=== PATIENT | female | born 1990 | race Two or more races ===

== ENCOUNTER 2017-01-12 10:46 | Emergency (ER) | payer MEDICAID ==
[~2017-01-12] VITALS: Ht 154.9 cm; Wt 59.0 kg
[2017-01-12] MEDS ORDERED: SODIUM CHLORIDE 0.9% 1,000 ML IV ONE (12:55)
[2017-01-12] MEDS ORDERED: MORPHINE SULF INJ 2 MG/ML SYRINGE 1ML IV ONE (13:00)
[2017-01-12] MEDS ORDERED: ONDANSETRON HCL 4 MG/2 ML VIAL IV ONE (13:00)
[2017-01-12 13:31] LABS: Basophils # (auto) 0 uL; Basophils % (auto) 0.2 % (0.0-2.0); Eosinophils # (auto) 0 uL; Eosinophils % (auto) 0.2 % (0.0-7.0); Hematocrit 42.2 % (36.0-46.0); Hemoglobin 13.8 g/dL (12.2-16.2); Lymphocytes # (auto) 1.2 uL; Lymphocytes % (auto) 10.5 % (10.0-50.0); Mean Corpuscular Hemoglobin 28.5 pg (28.0-32.0); Mean Corpuscular Hgb Conc. 32.8 g/dL (32.0-36.0); Mean Platelet Volume 9.8 fL (7.4-10.4); Monocytes # (auto) 0.2 uL; Monocytes % (auto) 1.6 % (0.0-12.0); Neutrophils # (auto) 10.1 uL; Neutrophils % (auto) 87.5 % (37.0-80.0); Platelet Count (auto) 279 10^3/uL (140-450); Red Cell Distribution Width 14.7 % (11.6-16.0); SUSPECT VIEW TRANSMISSION; White Blood Cell 11.5 10^3/uL (4.4-10.8)
[2017-01-12 13:56] LABS: Albumin 4.1 g/dL (3.4-5.0); BUN/Creatinine Ratio 20.4; Bilirubin, Total 0.4 mg/dL (0.2-1.0); Calcium 8.9 mg/dL (8.5-10.1); Total Protein 7.8 g/dL (6.4-8.2)
[2017-01-12] MEDS ORDERED: cefTRIAXone 1GM/50ML D5W 50 ML IV ONE (15:30)
[2017-01-12 16:30] VITALS: BP 115/61
[2017-01-12 17:53] LABS: Urine Bilirubin Negative (Negative); Urine Blood Negative /uL (Negative); Urine Color Yellow (Yellow); Urine Glucose Normal (Normal); Urine Ketone Negative (Negative); Urine Nitrite Negative (Negative); Urine RBC <1 /hpf (0 - 4); Urine Squamous Epithelial Cell FEW /hpf (<5); Urine Urobilinogen Normal (Negative)
== END 2017-01-12 16:30 | disposition home or self-care (01) ==
LOC: ER 10:46
DX: K80.80 Other cholelithiasis without obstruction (principal); D72.829 Elevated white blood cell count, unspecified
CPT/HCPCS: 36415; 76705; 80053; 81001; 82150; 83690; 85025; 96361; 96365; 96375; 99285; J0696; J2270; J2405; J7030

== ENCOUNTER 2017-03-12 19:02 | Emergency (ER) | payer MEDICAID ==
[~2017-03-12] VITALS: Ht 154.9 cm; Wt 65.4 kg
[2017-03-12 20:59] LABS: Basophils # (auto) 0 uL; Basophils % (auto) 0.2 % (0.0-2.0); Eosinophils # (auto) 0 uL; Eosinophils % (auto) 0.4 % (0.0-7.0); Hemoglobin 14.6 g/dL (12.2-16.2); Lymphocytes % (auto) 8.8 % (10.0-50.0); Mean Corpuscular Hemoglobin 28.5 pg (28.0-32.0); Mean Corpuscular Hgb Conc. 32.5 g/dL (32.0-36.0); Mean Corpuscular Volume 87.4 fL (80.0-100.0); Mean Platelet Volume 9.4 fL (7.4-10.4); Monocytes # (auto) 0.3 uL; Neutrophils % (auto) 87.6 % (37.0-80.0); Platelet Count (auto) 294 10^3/uL (140-450); Red Cell Distribution Width 14.7 % (11.6-16.0); White Blood Cell 11.4 10^3/uL (4.4-10.8)
[2017-03-12] MEDS ORDERED: SODIUM CHLORIDE 0.9% 1,000 ML IVB ONE (21:01)
[2017-03-12] MEDS ORDERED: PANTOPRAZOLE SODIUM 40 MG/10 ML VIAL IV STA (21:01)
[2017-03-12] MEDS ORDERED: HYDROmorphone HCL 2 MG/ML VL IV ONE (21:15)
[2017-03-12] MEDS ORDERED: PROCHLORPERAZINE EDISYLATE 5 MG/ML 2ML VIAL IV ONE (21:15)
[2017-03-12 21:25] LABS: Albumin 4.1 g/dL (3.4-5.0); BUN/Creatinine Ratio 16.7; Calcium 8.5 mg/dL (8.5-10.1); Potassium 3.6 mmol/L (3.5-5.1)
[2017-03-12 21:28] LABS: Total Protein 7.7 g/dL (6.4-8.2)
[2017-03-12 22:34] VITALS: BP 110/61
== END 2017-03-13 00:28 | disposition left against medical advice (07) ==
LOC: ER 19:07
DX: K80.80 Other cholelithiasis without obstruction (principal); F17.210 Nicotine dependence, cigarettes, uncomplicated
CPT/HCPCS: 36415; 76705; 80053; 82150; 83690; 85025; 94761; 96361; 96374; 96375; 99285; C9113; J0780; J1170; J7030

== ENCOUNTER 2017-05-18 10:43 | Emergency (ER) | payer MEDICAID ==
[~2017-05-18] VITALS: Ht 154.9 cm; Wt 60.8 kg
[2017-05-18 11:09] LABS: Basophils # (auto) 0.1 uL; CONDITION Y; Eosinophils # (auto) 0 uL; Eosinophils % (auto) 0.3 % (0.0-7.0); Hemoglobin 13.6 g/dL (12.2-16.2); Lymphocytes % (auto) 25.4 % (10.0-50.0); Mean Corpuscular Hemoglobin 29.4 pg (28.0-32.0); Mean Corpuscular Hgb Conc. 33.9 g/dL (32.0-36.0); Mean Corpuscular Volume 86.7 fL (80.0-100.0); Mean Platelet Volume 9.1 fL (7.4-10.4); Monocytes # (auto) 0.4 uL; Monocytes % (auto) 4.9 % (0.0-12.0); Neutrophils # (auto) 5.5 uL; Neutrophils % (auto) 68.4 % (37.0-80.0); Platelet Count (auto) 266 10^3/uL (140-450); Red Cell Distribution Width 14.9 % (11.6-16.0); White Blood Cell 8.1 10^3/uL (4.4-10.8)
[2017-05-18 11:32] LABS: Albumin 3.9 g/dL (3.4-5.0); BUN/Creatinine Ratio 17.9; Bilirubin, Total 0.7 mg/dL (0.2-1.0); Calcium 8.9 mg/dL (8.5-10.1); Potassium 3.6 mmol/L (3.5-5.1); Total Protein 7.5 g/dL (6.4-8.2)
[2017-05-18] MEDS ORDERED: SODIUM CHLORIDE 0.9% 1,000 ML IVB ONE (13:02)
[2017-05-18] MEDS ORDERED: ONDANSETRON HCL 4 MG/2 ML VIAL IV ONE (13:15)
[2017-05-18 15:12] LABS: Magnesium 2.3 mg/dL (1.6-2.6)
[2017-05-18 17:09] LABS: Urine Bilirubin Negative (Negative); Urine Blood Negative /uL (Negative); Urine Color Yellow (Yellow); Urine Glucose Normal (Normal); Urine Mucus FEW (None Seen); Urine Nitrite Negative (Negative); Urine RBC 21 /hpf (0 - 4); Urine Squamous Epithelial Cell FEW /hpf (<5)
[2017-05-18 17:18] LABS: Urine Ketone 4+ (Negative)
[2017-05-18 17:50] VITALS: BP 104/49
== END 2017-05-18 19:43 | disposition home or self-care (01) ==
LOC: ER 10:43
DX: O21.0 Mild hyperemesis gravidarum (principal); O99.334 Smoking (tobacco) complicating childbirth; Z3A.00 Weeks of gestation of pregnancy not specified
CPT/HCPCS: 36415; 80053; 81001; 81025; 82150; 83690; 83735; 85025; 96361; 96374; 99284; J2405; J7030

== ENCOUNTER 2017-05-26 10:30 | Emergency (ER) | payer MEDICAID ==
[~2017-05-26] VITALS: Ht 154.9 cm; Wt 60.8 kg
[2017-05-26] MEDS ORDERED: SODIUM CHLORIDE 0.9% 1,000 ML IVB ONE (10:59)
[2017-05-26 11:00] VITALS: BP 113/69
[2017-05-26] MEDS ORDERED: PROMETHAZINE HCL 25 MG/ML 1ML IV ONE (11:00)
[2017-05-26 11:30] LABS: Basophils # (auto) 0 uL; Basophils % (auto) 0.4 % (0.0-2.0); CONDITION Y; Eosinophils # (auto) 0.1 uL; Eosinophils % (auto) 0.9 % (0.0-7.0); Hematocrit 38.5 % (36.0-46.0); Hemoglobin 13.1 g/dL (12.2-16.2); Lymphocytes # (auto) 2.2 uL; Lymphocytes % (auto) 27.6 % (10.0-50.0); Mean Corpuscular Hemoglobin 29.9 pg (28.0-32.0); Mean Corpuscular Volume 87.7 fL (80.0-100.0); Mean Platelet Volume 9.6 fL (7.4-10.4); Monocytes # (auto) 0.6 uL; Neutrophils # (auto) 5.2 uL; Neutrophils % (auto) 64.1 % (37.0-80.0); Platelet Count (auto) 284 10^3/uL (140-450); Red Cell Distribution Width 14.8 % (11.6-16.0); White Blood Cell 8.1 10^3/uL (4.4-10.8)
[2017-05-26 11:54] LABS: Albumin 3.8 g/dL (3.4-5.0); BUN/Creatinine Ratio 11.3; Bilirubin, Total 0.5 mg/dL (0.2-1.0); Potassium 3.8 mmol/L (3.5-5.1); Total Protein 7.7 g/dL (6.4-8.2)
[2017-05-26] MEDS ORDERED: cefTRIAXone 1GM/50ML D5W 50 ML IV ONE (12:00)
[2017-05-26] MEDS ORDERED: SODIUM CHLORIDE 0.9% 1,000 ML IV ONE ×2 (12:00)
== END 2017-05-26 12:56 | disposition home or self-care (01) ==
LOC: ER 10:33
DX: O23.41 Unspecified infection of urinary tract in pregnancy, first trimester (principal); O99.331 Smoking (tobacco) complicating pregnancy, first trimester; Z3A.08 8 weeks gestation of pregnancy
CPT/HCPCS: 36415; 76801; 80053; 84702; 85025; 96361; 96365; 96375; 99285; J0696; J2550

== ENCOUNTER 2019-01-09 11:45 | Emergency (ER) | payer MEDICAID ==
[~2019-01-09] VITALS: Ht 154.9 cm; Wt 65.3 kg
[2019-01-09] MEDS ORDERED: ONDANSETRON HCL 4 MG/2 ML VIAL IV ONE (12:30)
[2019-01-09] MEDS ORDERED: SODIUM CHLORIDE 0.9% 1,000 ML IV ONE (12:30)
[2019-01-09] MEDS ORDERED: MORPHINE SULFATE 4 MG/ML SYR/VIAL IV ONE ×2 (12:30→15:15)
[2019-01-09 13:01] VITALS: BP 109/76
[2019-01-09 13:24] LABS: Basophils # (auto) 0 uL; Basophils % (auto) 0.3 % (0.0-2.0); Eosinophils # (auto) 0 uL; Eosinophils % (auto) 0.3 % (0.0-7.0); Hematocrit 42.8 % (36.0-46.0); Hemoglobin 13.8 g/dL (12.2-16.2); Lymphocytes # (auto) 1.2 uL; Lymphocytes % (auto) 8.6 % (10.0-50.0); Mean Corpuscular Hemoglobin 28.6 pg (28.0-32.0); Mean Corpuscular Hgb Conc. 32.3 g/dL (32.0-36.0); Mean Corpuscular Volume 88.6 fL (80.0-100.0); Monocytes # (auto) 0.4 uL; Monocytes % (auto) 3.1 % (0.0-12.0); Neutrophils % (auto) 87.7 % (37.0-80.0); Platelet Count (auto) 280 10^3/uL (140-450); Red Blood Cells 4.83 10^6/uL (4.0-5.20); Red Cell Distribution Width 14.3 % (11.8-14.3); White Blood Cell 13.7 10^3/uL (4.4-10.8)
[2019-01-09 13:41] LABS: Potassium 3.4 mmol/L (3.5-5.1)
[2019-01-09 13:44] LABS: Albumin 4.3 g/dL (3.4-5.0); BUN/Creatinine Ratio 19.7; Calcium 8.6 mg/dL (8.5-10.1)
[2019-01-09 13:47] LABS: Bilirubin, Total 0.7 mg/dL (0.2-1.0); Total Protein 7.8 g/dL (6.4-8.2)
[2019-01-09 15:28] LABS: Alcohol, Urine < 3.0 mg/dL (0-5); Amphetamine Screen, Urine NEGATIVE (NEGATIVE); Barbiturate Scree,Urine NEGATIVE (NEGATIVE); Benzodiazephine Screen, Urine NEGATIVE (NEGATIVE); Cannabinoid Screen, Urine POSITIVE (NEGATIVE); Cocaine Screen, Urine NEGATIVE (NEGATIVE); Opiate Scree,Urine POSITIVE (NEGATIVE); Phencyclidine Screen, Urine NEGATIVE (NEGATIVE)
[2019-01-09 15:45] LABS: Urine Amorphous Crystal FEW /hpf (None Seen); Urine Bacteria NONE SEEN /hpf (None Seen); Urine Blood Negative /uL (Negative); Urine Mucus FEW (None Seen); Urine Specific Gravity 1.029 (1.001-1.035); Urine WBC 2 /hpf (0 - 5)
[2019-01-09] MEDS ORDERED: LACTULOSE 20Gm/30ML SOLN PO ONE (16:30)
== END 2019-01-09 17:16 | disposition home or self-care (01) ==
LOC: ER 11:45
DX: K59.00 Constipation, unspecified (principal); K29.00 Acute gastritis without bleeding; F12.188 Cannabis abuse with other cannabis-induced disorder; R11.10 Vomiting, unspecified; Z90.49 Acquired absence of other specified parts of digestive tract
CPT/HCPCS: 36415; 74176; 80053; 80307; 81001; 81025; 82150; 83690; 85025; 94761; 96374; 96375; 96376; 99284; J2270; J2405

== ENCOUNTER 2019-09-12 10:08 | Observation (INO) | payer MEDICAID ==
[~2019-09-12] VITALS: Ht 157.5 cm; Wt 72.1 kg
[2019-09-12] MEDS ORDERED: PRENCAP PO (10:48)
[2019-09-12 10:57] LABS: Urine Bacteria FEW /hpf (None Seen); Urine Blood Negative /uL (Negative); Urine Mucus FEW (None Seen); Urine Specific Gravity 1.026 (1.001-1.035); Urine WBC 129 /hpf (0 - 5)
[2019-09-12] MEDS ORDERED: ONDANSETRON HCL 4 MG/2 ML VIAL IV ONE (11:00)
[2019-09-12] MEDS ORDERED: LACTATED RINGER'S 1,000 ML IV ONE (11:00)
== END 2019-09-12 13:21 | disposition home or self-care (01) | DRG 566 ==
LOC: LDRP 10:08
PROVIDERS: ADMIT Obstetrics & Gynecology; ATTEND Obstetrics & Gynecology
DX: O21.2 Late vomiting of pregnancy (principal); O26.893 Other specified pregnancy related conditions, third trimester; O62.9 Abnormality of forces of labor, unspecified; R19.7 Diarrhea, unspecified; Z3A.32 32 weeks gestation of pregnancy
CPT/HCPCS: 81001; 96361; 96374; G0378; J2405

== ENCOUNTER 2019-10-23 08:20 | Observation (INO) | payer MEDICAID ==
[~2019-10-23] VITALS: Ht 30.5 cm; Wt 0.5 kg
[~2019-10-23 08:20] MED LIST: PRENCAP PO
[2019-10-23 09:12] LABS: Basophils # (auto) 0.1 uL; Basophils % (auto) 0.7 % (0.0-2.0); Eosinophils # (auto) 0.2 uL; Eosinophils % (auto) 2.1 % (0.0-7.0); Hematocrit 29.9 % (36.0-46.0); Hemoglobin 9.7 g/dL (12.2-16.2); Lymphocytes # (auto) 1.8 uL; Lymphocytes % (auto) 24.6 % (10.0-50.0); Mean Corpuscular Hemoglobin 25.4 pg (28.0-32.0); Mean Corpuscular Hgb Conc. 32.4 g/dL (32.0-36.0); Mean Corpuscular Volume 78.3 fL (80.0-100.0); Monocytes # (auto) 0.4 uL; Monocytes % (auto) 6.1 % (0.0-12.0); Neutrophils # (auto) 4.9 uL; Neutrophils % (auto) 66.5 % (37.0-80.0); Nucleated Red Blood Cells % 0.2 %; Platelet Count (auto) 198 10^3/uL (140-450); Red Blood Cells 3.82 10^6/uL (4.0-5.20); Red Cell Distribution Width 18.9 % (11.8-14.3); White Blood Cell 7.4 10^3/uL (4.4-10.8)
[2019-10-23 09:17] LABS: Urine Bacteria MOD /hpf (None Seen); Urine Blood Negative /uL (Negative); Urine Mucus FEW (None Seen); Urine Specific Gravity 1.015 (1.001-1.035); Urine WBC 10 /hpf (0 - 5)
[2019-10-23 09:27] LABS: INR 0.96 (0.9-1.15); Partial Thromboplastin Time 27.4 sec (23.64-32.05)
[2019-10-23 09:34] LABS: Albumin 2.6 g/dL (3.4-5.0); Calcium 8.1 mg/dL (8.5-10.1); Potassium 3.8 mmol/L (3.5-5.1)
[2019-10-23 09:37] LABS: BUN/Creatinine Ratio 14.6; Bilirubin, Total 0.4 mg/dL (0.2-1.0); Total Protein 6.7 g/dL (6.4-8.2)
[2019-10-23] MEDS ORDERED: TERBUTALINE SULFATE 1 MG/ML 1ML VIAL SC ONE ×2 (10:09→10:15)
[2019-10-23] MEDS ORDERED: NIFEdipine 10 MG CAP PO ONE (10:15)
[2019-10-24 04:05] LABS: RPR Non Reactive (Non Reactive)
== END 2019-10-23 10:40 | disposition home or self-care (01) | DRG 566 ==
LOC: LDRP 08:20
PROVIDERS: ADMIT Obstetrics & Gynecology; ATTEND Obstetrics & Gynecology
DX: O62.9 Abnormality of forces of labor, unspecified (principal); Z3A.38 38 weeks gestation of pregnancy
CPT/HCPCS: 36415; 59025; 80053; 81001; 81002; 84112; 85025; 85610; 85730; 86592; 86850; 86900; 86901; 96372; G0378; J3105

== ENCOUNTER 2019-10-24 04:40 | Inpatient (IN) | payer MEDICAID, OTHER ==
[2019-10-24] VITALS (12 sets, daily range): BP systolic 90–104; BP diastolic 43–69
[~2019-10-24] VITALS: Ht 154.9 cm; Wt 75.7 kg
[2019-10-24] MEDS ORDERED: LACTATED RINGER'S 1,000 ML IV SCH (06:20)
[2019-10-24 07:02] LABS: Urine Bacteria NONE SEEN /hpf (None Seen); Urine Blood 2+ /uL (Negative); Urine Mucus FEW (None Seen); Urine WBC 5 /hpf (0 - 5)
[2019-10-24 07:12] LABS: Alcohol, Urine < 3.0 mg/dL (0-5); Amphetamine Screen, Urine NEGATIVE (NEGATIVE); Barbiturate Scree,Urine NEGATIVE (NEGATIVE); Benzodiazephine Screen, Urine NEGATIVE (NEGATIVE); Cannabinoid Screen, Urine NEGATIVE (NEGATIVE); Cocaine Screen, Urine NEGATIVE (NEGATIVE); Opiate Scree,Urine NEGATIVE (NEGATIVE); Phencyclidine Screen, Urine NEGATIVE (NEGATIVE)
[2019-10-24 07:17] LABS: Basophils # (auto) 0 uL; Eosinophils # (auto) 0.1 uL; Lymphocytes # (auto) 1.8 uL; Mean Corpuscular Hemoglobin 25.6 pg (28.0-32.0); Monocytes # (auto) 0.5 uL; Neutrophils # (auto) 6.4 uL; Nucleated Red Blood Cells % 0.1 %
[2019-10-24 07:19] LABS: Basophils % (auto) 0.4 % (0.0-2.0); Eosinophils % (auto) 1.6 % (0.0-7.0); Hematocrit 27.8 % (36.0-46.0); Hemoglobin 9.1 g/dL (12.2-16.2); Lymphocytes % (auto) 20.3 % (10.0-50.0); Mean Corpuscular Hgb Conc. 32.7 g/dL (32.0-36.0); Mean Corpuscular Volume 78.2 fL (80.0-100.0); Monocytes % (auto) 5.7 % (0.0-12.0); Platelet Count (auto) 190 10^3/uL (140-450); Red Blood Cells 3.55 10^6/uL (4.0-5.20); Red Cell Distribution Width 19.2 % (11.8-14.3); White Blood Cell 8.9 10^3/uL (4.4-10.8)
[2019-10-24] MEDS ORDERED: MORPHINE SULF(PF) 0.5MG/ML 10ML VIAL ONE (07:23)
[2019-10-24] MEDS ORDERED: OXYTOCIN 10 UNIT/ML 10ML VIAL ONE (07:24)
[2019-10-24] MEDS ORDERED: ceFAZolin 1GM VL ONE (07:24)
[2019-10-24] MEDS ORDERED: PHENYLEPHRINE HCL 10 MG/ML VL ONE (07:24)
[2019-10-24] MEDS ORDERED: ePHEDrine SULFATE 50 MG/ML AMP ONE (07:24)
[2019-10-24] MEDS ORDERED: LACT. RINGERS/OXYTOCIN 20UNITS 1,000 ML IV SCH (07:25)
[2019-10-24] MEDS ORDERED: TETRACAINE 1% INJ 2 ML VIAL IJ ONE (07:28)
[2019-10-24] MEDS ORDERED: MORPHINE SULFATE 4 MG/ML SYR/VIAL IV PRN (07:30)
[2019-10-24] MEDS ORDERED: ONDANSETRON HCL 4 MG/2 ML VIAL IV PRN ×3 (07:30→08:45)
[2019-10-24] MEDS ORDERED: ceFAZolin 1GM/50ML 50 ML IV SCH (07:30)
[2019-10-24 07:41] LABS: Albumin 2.3 g/dL (3.4-5.0); Calcium 7.7 mg/dL (8.5-10.1); Potassium 3.7 mmol/L (3.5-5.1)
[2019-10-24 07:44] LABS: BUN/Creatinine Ratio 16.7; Bilirubin, Total 0.3 mg/dL (0.2-1.0); Total Protein 5.8 g/dL (6.4-8.2)
[2019-10-24] MEDS ORDERED: METOCLOPRAMIDE HCL 5MG/ml INJ 2ml VIAL ONE (07:48)
[2019-10-24 07:51] LABS: INR 0.97 (0.9-1.15); Partial Thromboplastin Time 27.2 sec (23.64-32.05)
[2019-10-24] MEDS ORDERED: ONDANSETRON HCL 4 MG/2 ML VIAL ONE (07:52)
[2019-10-24] MEDS ORDERED: MIDAZOLAM HCL 1MG/1ML-2 ML VIAL ONE (07:55)
[2019-10-24] MEDS ORDERED: KETOROLAC TROMETH 30 MG/ML 1ML VIAL IV PRN (08:45)
[2019-10-24] MEDS ORDERED: diphenhdrAMINE HCL 50 MG/1 ML VL IV PRN (08:45)
[2019-10-24] MEDS ORDERED: HYDROmorphone HCL 2 MG/ML VL IV PRN (08:45)
[2019-10-24] MEDS ORDERED: NALOXONE HCL 0.4 MG/ML VIAL IV PRN (08:45)
--- NOTE | 2019-10-24 09:30 | NUR ---
Post Op for LDRP: Received patient from PACU via bed to room 108. Patient A/A/Ox4, abdominal binder and bilateral SCD's are in place, IV fluids placed on pump and infusing per order, incisional site dressing clean/dry/intact and Barnes Catheter to gravity draining clear yellow urine. Incentive Spirometer at bedside and instruction on proper use with return demonstration done by patient. Infant placed skin to skin on mothers chest.
[2019-10-24] MEDS ORDERED: ACETAMINOPHEN IV 1000 MG/100ML (10MG/ML) IV PRN (10:45)
[2019-10-24] MEDS ORDERED: ACETAMINOPHEN IV 1000 MG/100ML (10MG/ML) IV ONE (15:15)
[2019-10-24] MEDS: ceFAZolin 1GM/50ML 50 ML IV SCH (15:47)
[2019-10-24] MEDS ORDERED: ACETAMINOPHEN IV 100 ML IV ONE (17:15)
--- NOTE | 2019-10-24 17:34 | NUR ---
[facility] Pericare done using clean technique. NOted Lochia scant with no clots , fundus firm 1 below umbilicus. Noted alarcon draining to gravity. New pad applied. Patient tolerated well.
[2019-10-24 20:33] LABS: Basophils # (auto) 0 uL; Eosinophils # (auto) 0 uL; Eosinophils % (auto) 0.3 % (0.0-7.0); Hematocrit 31.4 % (36.0-46.0); Nucleated Red Blood Cells % 0.1 %; White Blood Cell 12.5 10^3/uL (4.4-10.8)
[2019-10-24 20:35] LABS: Basophils % (auto) 0.2 % (0.0-2.0); Lymphocytes # (auto) 1.3 uL; Lymphocytes % (auto) 10.3 % (10.0-50.0); Mean Corpuscular Hemoglobin 24.8 pg (28.0-32.0); Mean Corpuscular Hgb Conc. 31.8 g/dL (32.0-36.0); Monocytes # (auto) 0.6 uL; Monocytes % (auto) 4.5 % (0.0-12.0); Neutrophils # (auto) 10.6 uL; Neutrophils % (auto) 84.7 % (37.0-80.0); Platelet Count (auto) 199 10^3/uL (140-450); Red Blood Cells 4.02 10^6/uL (4.0-5.20); Red Cell Distribution Width 19.5 % (11.8-14.3)
--- NOTE | 2019-10-24 23:15 | NUR ---
Preparing pt for ambulation, Fundus firm at the umb. lochia is small no clots noted. alarcon remains in place as ordered 450 ml's of dark yellow urine emptied. Kyleigh care given, pt sitting on edge of bed no c/o dizziness. pt up and ambulated to chair with steady gait. pt sitting in chair offers no c/o at this time. Instructed pt to notify staff if exp any problems or has any concerns, call shields within reach, no distress noted will continue to monitor
--- NOTE | 2019-10-25 00:25 | NUR ---
Pt back to bed call shields within reach will continue to monitor
[2019-10-25] MEDS: ceFAZolin 1GM/50ML 50 ML IV SCH (00:32)
[2019-10-25 03:00] VITALS: BP 97/61
--- NOTE | 2019-10-25 05:30 | NUR ---
Barnes catheter removed, 150 ml's emptied, explained to pt the importance of being able to urinate within a 6 hour time frame pt verbalizes understanding.
[2019-10-25] MEDS: LACTATED RINGER'S 1,000 ML IV SCH ×4 (05:58→18:02)
[2019-10-25 06:40] LABS: Basophils # (auto) 0 uL; Basophils % (auto) 0.3 % (0.0-2.0); Eosinophils # (auto) 0.1 uL; Neutrophils # (auto) 8.3 uL
[2019-10-25 06:45] LABS: Eosinophils % (auto) 0.9 % (0.0-7.0); Hematocrit 31.7 % (36.0-46.0); Hemoglobin 10.3 g/dL (12.2-16.2); Lymphocytes # (auto) 1.3 uL; Lymphocytes % (auto) 12.7 % (10.0-50.0); Mean Corpuscular Hemoglobin 25.3 pg (28.0-32.0); Mean Corpuscular Hgb Conc. 32.5 g/dL (32.0-36.0); Mean Corpuscular Volume 77.9 fL (80.0-100.0); Monocytes # (auto) 0.5 uL; Monocytes % (auto) 4.5 % (0.0-12.0); Neutrophils % (auto) 81.6 % (37.0-80.0); Platelet Count (auto) 185 10^3/uL (140-450); Red Blood Cells 4.07 10^6/uL (4.0-5.20); Red Cell Distribution Width 20.7 % (11.8-14.3); White Blood Cell 10.2 10^3/uL (4.4-10.8)
--- NOTE | 2019-10-25 07:10 | NUR ---
Dressing removed, Lower abdominal incision approximated, no drainage/redness/inflammation visualized at time of removal. Education provided on incisional care. Patient verbalized understanding and willingness to comply to instructions/teaching provided.
[2019-10-25 07:20] VITALS: BP 91/49
[2019-10-25] MEDS ORDERED: HYDROcodone-ACET 5/325MG TAB PO PRN (08:15)
[2019-10-25] MEDS ORDERED: BISACODYL 10 MG RECT SUPP PR PRN (08:15)
--- NOTE | 2019-10-25 08:15 | NUR ---
DR WILLIAMSON ROUNDED ON THE PT, INCISION ASSESSED BY DR WILLIAMSON. ORDERS RECEIVED TO LEAVE INCISION OPEN TO AIR AND CARRIED OUT.
[2019-10-25] MEDS ORDERED: ceFAZolin 1GM/50ML 50 ML IV ONE (08:30)
--- NOTE | 2019-10-25 08:30 | NUR ---
Ambulation: Patient OOB with standby assistance by RN. Patient ambulated to bathroom with steady gait. Patient able to void 500 CC without difficulty. Pericare teaching provided with returned demonstration by patient. Patient ambulated back to bed with steady gait and no distress noted.
[2019-10-25] MEDS: DOCUSATE SOD 100 MG CAP PO SCH ×2 (08:49→21:28)
[2019-10-25] MEDS: DOCUSATE CALCIUM 240 MG CAP PO SCH (08:49)
[2019-10-25] MEDS: FERROUS SULFATE 325 MG TAB PO SCH ×2 (08:50→21:28)
[2019-10-25] MEDS: HYDROcodone-ACET 5/325MG TAB PO PRN ×3 (08:50→23:15)
[2019-10-25 11:30] VITALS: BP 95/53
[2019-10-25] MEDS: SIMETHICONE 80 MG CHEWABLE TABLET PO SCH ×3 (12:45→21:27)
[2019-10-25] MEDS: IBUPROFEN 800 MG TAB PO PRN ×2 (12:45→20:34)
[2019-10-25 15:30] VITALS: BP 90/53
--- NOTE | 2019-10-25 18:12 | NUR ---
Received report on stable pt from Jose Manning
--- NOTE | 2019-10-25 18:12 | NUR ---
Received report on stable pt from Jose Metcalf
[2019-10-25 18:55] VITALS: BP 106/53
[2019-10-25 22:57] VITALS: BP 92/55
--- NOTE | 2019-10-26 01:22 | NUR ---
Hand off report on stable pt given to Jose Concepcion
[2019-10-26 03:10] VITALS: BP 98/61
[2019-10-26] MEDS: LACTATED RINGER'S 1,000 ML IV SCH ×2 (04:02→18:30)
[2019-10-26] MEDS: SIMETHICONE 80 MG CHEWABLE TABLET PO SCH ×4 (05:33→22:18)
[2019-10-26] MEDS: IBUPROFEN 800 MG TAB PO PRN ×3 (05:33→22:18)
[2019-10-26 06:38] VITALS: BP 96/53
[2019-10-26] MEDS: DOCUSATE SOD 100 MG CAP PO SCH ×2 (10:30→22:18)
[2019-10-26] MEDS: DOCUSATE CALCIUM 240 MG CAP PO SCH (10:30)
[2019-10-26] MEDS: FERROUS SULFATE 325 MG TAB PO SCH ×2 (10:30→22:18)
[2019-10-26] MEDS: HYDROcodone-ACET 5/325MG TAB PO PRN ×2 (10:31→16:59)
[2019-10-26 11:30] VITALS: BP 92/50
[2019-10-26 15:00] VITALS: BP 99/56
[2019-10-26 19:00] VITALS: BP 107/69
[2019-10-26 23:11] VITALS: BP_SYST 106; BP_SYST 107; BP_DIAS 55; BP_DIAS 69
[2019-10-27 02:33] VITALS: BP 106/61
[2019-10-27] MEDS: HYDROcodone-ACET 5/325MG TAB PO PRN (02:37)
[2019-10-27] MEDS: SIMETHICONE 80 MG CHEWABLE TABLET PO SCH (05:53)
[2019-10-27] MEDS: IBUPROFEN 800 MG TAB PO PRN (05:54)
[2019-10-27 06:41] VITALS: BP 98/53
--- NOTE | 2019-10-27 07:30 | NUR ---
Discharge: Discharge instructions given as ordered. Pt encouraged to follow up with DIRECTOR OF EVENT SALES as instructed. All questions and concerns addressed. Patient verbalized understanding. Medication reconciliation completed and copy given to patient. All required/requested vaccines given and copies of vaccinations given to patient. Patient encouraged to prepare to depart unit. PATIENT STATE SHE IS WAITING FOR HER RIDE HOME. Addendum: 10/27/19 at 08 by Juliocesar Gonzalez RN PATIENT REFUSED T-DAP AND INFLUENZA.
--- NOTE | 2019-10-27 09:25 | NUR ---
Discharge: Patient taken to vehicle via wheelchair with all personal belongings, accompanied by staff and family member. No distress noted at time of departure, no adverse changes in status since initial assessment.
== END 2019-10-27 09:25 | disposition home or self-care (01) | DRG 540 ==
LOC: EDBD → EDUNIT# 04:40 → LDRP 04:40 → UNDOADMIN 04:40 → LDRP 10:17
PROVIDERS: ADMIT Obstetrics & Gynecology; ATTEND Obstetrics & Gynecology
PROC: 10D00Z1 Extraction of Products of Conception, Low, Open Approach (ICD-10-PCS; principal; 2019-10-24 07:24)
DX: O34.219 Maternal care for unspecified type scar from previous cesarean delivery (principal); Z37.0 Single live birth; Z3A.39 39 weeks gestation of pregnancy
CPT/HCPCS: 36415; 51702; 59025; 80053; 80307; 81001; 81002; 84112; 85025; 85610; 85730; 86592; 86850; 86900; 86901; 94760; 96361; 96366; 96374; 96375; G0378; J0131; J0690; J2250; J2405; J2590

== ENCOUNTER 2020-08-08 02:22 | Emergency (ER) | payer MEDICAID ==
[~2020-08-08] VITALS: Ht 157.5 cm; Wt 67.2 kg
[2020-08-08 02:39] VITALS: BP 117/70
[2020-08-08] MEDS ORDERED: LIDOCAINE 1% HCL (LOCAL ANESTH.) INJ 20ML MDV ID ONE (03:15)
[2020-08-08] MEDS ORDERED: IBUPROFEN 800 MG TAB PO ONE (03:45)
== END 2020-08-08 03:42 | disposition home or self-care (01) ==
LOC: ER 02:23
DX: S01.111A Laceration without foreign body of right eyelid and periocular area, initial encounter (principal); F17.200 Nicotine dependence, unspecified, uncomplicated; W22.03XA Walked into furniture, initial encounter; Y93.89 Activity, other specified; Y92.89 Other specified places as the place of occurrence of the external cause; Y99.8 Other external cause status
CPT/HCPCS: 12011; 99282; J2001

== ENCOUNTER 2022-09-22 16:08 | Emergency (ER) | payer MEDICAID ==
[~2022-09-22] VITALS: Ht 154.9 cm; Wt 65.7 kg
[2022-09-22] MEDS ORDERED: SODIUM CHLORIDE 0.9% 1,000 ML IVB ONE (16:45)
[2022-09-22 18:00] LABS: Albumin 3.8 g/dL (3.4-5.0); Calcium 9.1 mg/dL (8.5-10.1); Potassium 3.7 mmol/L (3.5-5.1)
[2022-09-22 18:12] LABS: Basophils # (auto) 0.1 10 ^3/uL (0-0.2); Basophils % (auto) 0.7 % (0.0-2.0); Eosinophils # (auto) 0.1 10 ^3/uL (0-0.8); Eosinophils % (auto) 0.8 % (0.0-7.0); Hematocrit 41.7 % (36.0-46.0); Hemoglobin 14.2 g/dL (12.2-16.2); Lymphocytes # (auto) 1.7 10 ^3/uL (0.4-5.4); Mean Corpuscular Hemoglobin 29.6 pg (28.0-32.0); Mean Corpuscular Volume 87.2 fL (80.0-100.0); Monocytes # (auto) 0.4 10 ^3/uL (0-1.3); Monocytes % (auto) 4.6 % (0.0-12.0); Neutrophils # (auto) 6.9 10 ^3/uL (1.6-8.6); Neutrophils % (auto) 74.9 % (37.0-80.0); Red Blood Cells 4.78 10^6/uL (4.0-5.20); Red Cell Distribution Width 14.5 % (11.8-14.3); White Blood Cell 9.2 10^3/uL (4.4-10.8)
[2022-09-22 18:28] LABS: Bilirubin, Total 0.9 mg/dL (0.2-1.0); Total Protein 7.6 g/dL (6.4-8.2)
[2022-09-22] MEDS ORDERED: ONDANSETRON ODT 4 MG TAB PO ONE (19:00)
[2022-09-22 21:27] LABS: Urine Bacteria FEW /hpf (None Seen); Urine Blood Negative /uL (Negative); Urine Mucus MODERATE (None Seen); Urine Specific Gravity 1.035 (1.001-1.035); Urine WBC 5 /hpf (0 - 5)
[2022-09-22 23:07] VITALS: BP 130/74
[2022-09-22] MEDS ORDERED: ONDA-144 PO (23:14)
[2022-09-22] MEDS ORDERED: CEPH-510 PO (23:14)
== END 2022-09-22 23:23 | disposition home or self-care (01) ==
LOC: ER 16:08
DX: O21.0 Mild hyperemesis gravidarum (principal); F17.200 Nicotine dependence, unspecified, uncomplicated; Z3A.08 8 weeks gestation of pregnancy; Z90.49 Acquired absence of other specified parts of digestive tract
CPT/HCPCS: 36415; 76801; 80053; 81001; 82010; 84702; 85025; 96360; 99284; J7030; Q0162

== ENCOUNTER 2022-10-14 16:25 | Emergency (ER) | payer MEDICAID ==
[~2022-10-14] VITALS: Ht 154.9 cm; Wt 70.5 kg
[~2022-10-14 16:25] MED LIST changes: +CEPH-510 PO; +ONDA-144 PO
[2022-10-14 18:39] VITALS: BP 112/71
[2022-10-14] MEDS ORDERED: ACETAMINOPHEN 500 MG TAB PO ONE (18:45)
== END 2022-10-14 20:30 | disposition home or self-care (01) ==
LOC: ER 16:29
DX: O20.8 Other hemorrhage in early pregnancy (principal); F17.200 Nicotine dependence, unspecified, uncomplicated; Z3A.12 12 weeks gestation of pregnancy; Z90.49 Acquired absence of other specified parts of digestive tract
CPT/HCPCS: 36415; 76801; 84702

== ENCOUNTER 2025-02-23 13:47 | Inpatient (IN) | payer MEDICAID ==
[~2025-02-23] VITALS: Ht 154.9 cm; Wt 68.6 kg
--- NOTE | 2025-02-23 14:29 | ED.PDOC ---
History of Present Illness HPI Comments 34 y/o overweight F, with a history of BTL, Cholecystectomy, 3x C-sections, and marijuana use, presents with c/o nonradiating, diffused abdominal pain, nausea, vomiting, and diarrhea for 1x day, today. Patient reports on worsening symptoms, with no prior history of, following initial, unprovoked onset, yesterday. She rates her pain a 6/10 in severity. Patient reports possible spoiled food consumption and refutes any recent sick contact, injuries, recent marijuana use, or travel. Patient denies any hematemesis, constipation, urinary symptoms, fever, chills, or other associated symptoms or modifiers at this time. Chief Complaint: Abdominal Pain Time Seen by MD: 14:00 Primary Care Provider: NONE Reviewed Notes: Nurses Notes, Medications, Allergies Allergies: Coded Allergies: NO KNOWN ALLERGIES (Unverified , 01/12/17) Home Meds Active Scripts Ondansetron (Zofran) 4 Mg Tab, 8 MG PO Q8HPRN PRN for 3 Days, #10 MG Prov:JESUS FONSECA DO 09/22/22 Cephalexin ( Keflex 500) 500 Mg Cap, 1 CAP PO TID for 5 Days, #20 CAP Prov:JESUS FONSECA DO 09/22/22 Reported Medications Without A W/ Fe Fumar (Pnv-Edgar) Cap, 1 TAB PO DAILY, CAP 09/12/19 Information Source: Patient Mode of Arrival: Ambulatory Severity: Moderate Timing: Days Duration: Since onset Prehospital treatment: None Past Medical History PAST MEDICAL HISTORY: Gallstones Surgical History: BTL, Cholecystectomy, (3x) [employer] 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: No Pertinent [employer] 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 Family History Family History: Reviewed,noncontributory to illness, No family hx of Cancer, No family hx of Heart eddie, No family hx of HTN, No family hx ofKidney eddie, No family hx of Liver eddie, No family hx of Lung eddie, No family hx of Stroke, Family hx of DM Social History Smoker: Non-Smoker Alcohol: Occasionally Drugs: Denies Drug Use, Marijuana Lives In: Home Constitutional: denies: chills, diaphoresis, fatigue, fever, malaise, sweats, weakness, others EENTM: denies: blurred vision, double vision, ear bleeding, ear discharge, ear drainage, ear pain, ear ringing, eye pain, eye redness, hearing loss, mouth pain, mouth swelling, nasal discharge, nose bleeding, nose congestion, nose pain, photophobia, tearing, throat pain, throat swelling, voice changes, others Respiratory: denies: cough, hemoptysis, orthopnea, SOB at rest, shortness of breath, SOB with excertion, stridor, wheezing, others Cardiovascular: denies: chest pain, dizzy spells, diaphoresis, Dyspnea on exertion, edema, irregular heart beat, left arm pain, lightheadedness, palpitations, PND, syncope, others Gastrointestinal: reports: abdominal pain, diarrhea, nausea, vomiting; denies: abdomen distended, blood streaked bowels, constipated, dysphagia, difficulty swallowing, hematemesis, melena, poor appetite, poor fluid intake, rectal bleeding, rectal pain, others Genitourinary: denies: abnormal vagina bleeding, burning, dyspareunia, dysuria, flank pain, frequency, hematuria, incontinence, pain, , vagina discharge, urgency, others Neurological: denies: dizziness, fainting, headache, left sided numbness, left sided weakness, numbness, paresthesia, pre-existing deficit, right sided numbness, right sided weakness, seizure, speech problems, tingling, tremors, weakness, others Musculoskeletal: denies: back pain, gout, joint pain, joint swelling, muscle pain, muscle stiffness, neck pain, others Integumetry: denies: bruises, change in color, change in hair/nails, dryness, laceration, lesions, lumps, rash, wounds, others Allergic/Immunocompromised: denies: Difficulty Healing, Frequent Infections, Hives, Itching, others Hematologic/Lymphatic: denies: anemia, blood clots, easy bleeding, easy bruising, swollen glands, others Endocrine: denies: excessive hunger, excessive sweating, excessive thirst, excessive urination, flushing, intolerance to cold, intolerance to heat, unexplained weight gain, unexplained weight loss, others Psychiatric: denies: anxiety, bipolar disorder, depression, hopeless, panic disorder, schizophrenia, sleepless, suicidal, others All Other Systems: Reviewed and Negative Physical Exam General Appearance: Moderate Distress HEENT: Normal ENT Inspection, Pharynx Normal, TMs Normal Neck: Full Range of Motion, Non-Tender, Normal, Normal Inspection Respiratory: Chest Non-Tender, Lungs Clear, No Accessory Muscle Use, No Respir atory Distress, Normal Breath Sounds Cardiovascular: No Edema, No JVD, No Murmur, No Gallop, Normal Peripheral Pulses, Regular Rate/Rhythm Breast Exam: Deferred Gastrointestinal: Diffuse, No Organomegaly, No Pulsatile Mass, Normal Bowel Sounds, Soft, Tenderness Genitalia: Deferred Pelvic: Deferred Rectal: Deferred Extremities: No calf tenderness, Normal capillary refill, Normal inspection, Normal range of motion, Non-tender, No pedal edema Musculoskeletal : Apperance: Normal Neurologic: Alert, quality director II-XII nml as Tested, No Motor Deficits, Normal Affect, Normal Mood, No Sensory Deficits Cerebellar Function: Normal Reflexes: Normal Skin: Dry, Normal Color, Warm Lymphatic: No Adenopathy Was a procedure done? Was a procedure done?: No Differential Dx Considerations may include: gastritis, gastroenteritis, PUD, GERD, cholelithiasis, diverticulitis, appendicitis, colitis, viral syndrome, among others X-Ray, Labs, Meds, VS Vital Signs Date Time Temp Pulse Resp B/P (MAP) Pulse Ox O2 Delivery O2 Flow Rate FiO2 02/23/25 13:53 97.6 89 18 111/65 (80) 96 97.6 Lab Test 02/23/25 14:20 02/23/25 13:57 Range/Units White Blood Count 10.8 4.4-10.8 10^3/uL Red Blood Count 4.70 4.0-5.20 10^6/uL Hemoglobin 13.1 12.2-16.2 g/dL Hematocrit 39.7 36.0-46.0 % Mean Corpuscular Volume 84.4 80.0-100.0 fL Mean Corpuscular Hemoglobin 27.8 L 28.0-32.0 pg Mean Corpuscular Hemoglobin Concent 32.9 32.0-36.0 g/dL Red Cell Distribution Width 15.8 H 11.8-14.3 % Platelet Count 265 140-450 10^3/uL Mean Platelet Volume 9.1 6.9-10.8 fL Neutrophils (%) (Auto) 91.8 H 37.0-80.0 % Lymphocytes (%) (Auto) 5.8 L 10.0-50.0 % Monocytes (%) (Auto) 2.1 0.0-12.0 % Eosinophils (%) (Auto) 0.0 0.0-7.0 % Basophils (%) (Auto) 0.3 0.0-2.0 % Neutrophils # (Auto) 9.9 H 1.6-8.6 10 ^3/uL Lymphocytes # (Auto) 0.6 0.4-5.4 10 ^3/uL Monocytes # (Auto) 0.2 0-1.3 10 ^3/uL Eosinophils # (Auto) 0 0-0.8 10 ^3/uL Basophils # (Auto) 0 0-0.2 10 ^3/uL Nucleated Red Blood Cells 0.0 % Sodium Level 140 136-145 mmol/L Potassium Level 3.4 L 3.5-5.1 mmol/L Chloride Level 107 98-107 mmol/L Carbon Dioxide Level 24 20-31 mmol/L Anion Gap 9 5-15 Blood Urea Nitrogen 13 9-23 mg/dL Creatinine 0.63 0.550-1.02 mg/dL Glomerular Filtration Rate Calc 120 >90 mL/min BUN/Creatinine Ratio 20.6 H 10.0-20.0 Serum Glucose 107 H 74-106 mg/dL Calcium Level 9.3 8.7-10.4 mg/dL Total Bilirubin 1.2 H 0.2-1.0 mg/dL Aspartate Amino Transferase (AST) 10 L 13-40 U/L Alanine Aminotransferase (ALT) 10 7-40 U/L Alkaline Phosphatase 59 46-116 U/L Total Protein 7.5 5.7-8.2 g/dL Albumin 4.8 3.2-4.8 g/dL Lipase 32 12-53 U/L Urine Color Yellow Yellow Urine Clarity Turbid H Clear Urine pH 7.5 5.0-9.0 Urine Specific [place] 1.029 1.001-1.035 Urine Protein 1+ H Negative Urine Ketones 3+ H Negative Urine Blood Negative Negative /uL Urine Nitrite Negative Negative Urine Bilirubin Negative Negative Urine Urobilinogen Normal Negative mg/dL Urine Leukocyte Esterase Negative Negative /uL Urine RBC 20 0 - 4 /hpf Urine Microscopic WBC 3 0-5 /HPF Urine Squamous Epithelial Cells Mod <5 /hpf Urine Bacteria None seen None Seen /hpf Urine Mucus Few None Seen Urine Glucose Normal Normal mg/dL As scan of the abdomen and pelvis shows: IMPRESSION: Mild wall thickening of the stomach and proximal small bowel loops which may be due to inadequate distention/gastroenteritis. Punctate nonobstructing right renal calculus. Sigmoid diverticulosis without diverticulitis. Asymmetric right yfpxl-ffvlywn-cwuz-left sacroiliitis. The urine test is negative. The patient's CBC is within normal limits The chemistry panel is within normal limits At this time, the patient was being admitted to the hospitalist with intractable abdominal pain Images Reviewed?: Images reviewed and evaluated by me Time of 1ST Reevaluation: 14:30 Reevaluation 1ST: Unchanged Patient Education/Counseling: Diagnosis, Treatment, Prognosis Family Education/Counseling: No Family Present Departure 1 Departure Time of Disposition: 18:26 Impression: Primary Impression: Abdominal pain of unknown etiology Disposition: ADMITTED INPATIENT Admit to: Med Surg Condition: Fair Critical Care Note Critical Care Time?: No Stability Stability form required: Yes Unstable for transfer: ED Physician Assesment (Clinical assesment) Heart Score Heart Score: Heart Score Response (Comments) Value History N/A 0 EKG N/A 0 Age N/A 0 Risk Factors N/A 0 Troponin N/A 0 Total 0 I personally scribed for CONRAD NIEVES MD ([email or web address]) on 02/23/25 at 14:29. Electronically submitted by Freeman Wright ([email or web address]). I personally scribed for CONRAD NIEVES MD ([email or web address]) on 02/23/25 at 14:30. E lectronically submitted by Freeman Wright ([email or web address]). CONRAD NIEVES MD Feb 23, 2025 14:29
[2025-02-23 14:35] LABS: Basophils # (auto) 0 10 ^3/uL (0-0.2); Basophils % (auto) 0.3 % (0.0-2.0); Eosinophils # (auto) 0 10 ^3/uL (0-0.8); Hematocrit 39.7 % (36.0-46.0); Hemoglobin 13.1 g/dL (12.2-16.2); Lymphocytes # (auto) 0.6 10 ^3/uL (0.4-5.4); Lymphocytes % (auto) 5.8 % (10.0-50.0); Mean Corpuscular Hemoglobin 27.8 pg (28.0-32.0); Mean Corpuscular Hgb Conc. 32.9 g/dL (32.0-36.0); Mean Corpuscular Volume 84.4 fL (80.0-100.0); Monocytes # (auto) 0.2 10 ^3/uL (0-1.3); Monocytes % (auto) 2.1 % (0.0-12.0); Neutrophils # (auto) 9.9 10 ^3/uL (1.6-8.6); Neutrophils % (auto) 91.8 % (37.0-80.0); Platelet Count (auto) 265 10^3/uL (140-450); Red Cell Distribution Width 15.8 % (11.8-14.3); White Blood Cell 10.8 10^3/uL (4.4-10.8)
[2025-02-23 15:06] LABS: Alanine Aminotransferase 10 U/L (7-40); Alkaline Phosphatase 59 U/L (46-116); Anion Gap 9 (5-15); Aspartate Aminotransferase 10 U/L (13-40); BUN/Creatinine Ratio 20.6 (10.0-20.0); Blood Urea Nitrogen 13 mg/dL (9-23); Calcium 9.3 mg/dL (8.7-10.4); Carbon Dioxide 24 mmol/L (20-31); Chloride 107 mmol/L (98-107); Glucose 107 mg/dL (74-106); Lipase 32 U/L (12-53); Potassium 3.4 mmol/L (3.5-5.1); Sodium 140 mmol/L (136-145); Total Protein 7.5 g/dL (5.7-8.2)
[2025-02-23 15:07] LABS: Albumin 4.8 g/dL (3.2-4.8); Bilirubin, Total 1.2 mg/dL (0.2-1.0)
[2025-02-23 15:16] LABS: Urine Bacteria None Seen /hpf (None Seen)
[2025-02-23 15:44] LABS: Urine Blood Negative /uL (Negative); Urine Clarity Turbid (Clear); Urine Color Yellow (Yellow); Urine Mucus FEW (None Seen); Urine Protein, UAD 1+ (Negative); Urine Specific Gravity 1.029 (1.001-1.035); Urine Squamous Epithelial Cell MOD /hpf (<5); Urine Urobilinogen Normal (Negative); Urine WBC 3 /HPF (0-5); Urine pH 7.5 (5.0-9.0)
--- NOTE | 2025-02-23 18:09 | DVH ---
Exam: CT CT AB PEL WO CON-NO ORAL OR IV History: pain Comparison Study: None available at time of dictation. TECHNIQUE: Multidetector CT of the abdomen and pelvis without IV contrast. Axial, coronal and sagitta l multiplanar reformats were obtained from the axial data set by the technologist. Radiation Dose Information: CT Dose: CTDI volume is 10.39 mGy. Dose-length product is 607.59 mGy*cm FINDINGS: The lung bases are clear. Partially visualized heart is unremarkable. Status post cholecystectomy. Liver, spleen, pancreas and adrenal glands unremarkable. Punctate nonobstructing right renal calculus. Otherwise, kidneys, ureters and urinary bladder unrema rkable. Uterus is unremarkable. Bilateral ovaries are visualized. Mild gastric wall thickening. Small bowel loops are fluid-filled and nondistended. Mild wall thickeni ng of small bowel segment within the left hemiabdomen. Appendix is unremarkable. Sigmoid diverticulos is without diverticulitis. The large bowel is otherwise unremarkable. No evidence of intraperitoneal free air or free fluid. No evidence of aortic aneurysm. No significant lymphadenopathy. Tiny fat containing umbilical hernia. No destructive osseous lesions noted. Asymmetric sclerosis of t he hnktv-rshvojh-lxnr-left SI joints. IMPRESSION: Mild wall thickening of the stomach and proximal small bowel loops which may be due to inadequate dis tention/gastroenteritis. Punctate nonobstructing right renal calculus. Sigmoid diverticulosis without diverticulitis. Asymmetric right jhqhf-zwieflo-yuug-left sacroiliitis.
[2025-02-23] MEDS: MORPHINE SULFATE 4 MG/ML SYR/VIAL IV ONE (21:46)
[2025-02-23] MEDS: ONDANSETRON HCL 4 MG/2 ML VIAL IV ONE (22:00)
[2025-02-23 22:01] VITALS: RESP 17; O2SAT 97
[2025-02-23] MEDS ORDERED: ACETAMINOPHEN 500 MG TAB or CAP PO PRN (22:45)
--- NOTE | 2025-02-23 22:46 | DVHHPRES ---
History of Present Illness Resident Creating Document: BRENDEN TOMAS RESIDENT History of Present Illness Boone Byrd is a 34-year-old with past medical history of 3 section and cholecystectomy 7 years ago who presented to the ER with a chief complaint of intractable nausea, vomiting and diarrhea for the past 2 days. Patient reports that she is unable to keep any solids or liquid food down, has been experiencing vomiting which is clear and diarrhea about 8-10 episodes for the past 2 days which is watery and yellowish, not bloody. Her symptoms did improve yesterday but then again flared up to the therefore she decided to come to the ER. She reports chills but no fever or shortness of breaths or rash. Patient reports dining out, but says that she has not tried any items. Denies any recent travel history. Says that her kids at house are fine. Patient also reports right-sided sharp flank pain occasionally. Medical and surgical history: 3 sections, cholecystectomy 7 years ago Social history: Lives with kids, denies smoking, alcohol, drug use Patient seen and examined at bedside. Reports epigastric pain. No tenderness. Patient kept NPO, we will resume clear liquid diet tomorrow Family History: None Smoke: No ALCOHOL: none Drugs: None Lives: with Family Review of Systems Allergies: Coded Allergies: NO KNOWN ALLERGIES (Unverified , 01/12/17) Exam Vital Signs Vital Signs Date Time Temp Pulse Resp B/P (MAP) Pulse Ox O2 Delivery O2 Flow Rate FiO2 02/23/25 22:01 17 97 Room Air* 0 21 02/23/25 21:38 98.5 69 119/74 (89) 98.5 Exam Young female patient sitting comfortably in the chair in the ER. General: Well-built, afebrile, palor, mucosae are moist Cardiovascular: Regular S1 and S2. No murmurs, gallops or rubs. No JVD elevation. No pedal edema Respiratory: Normal B/L air entry on room air. Clear lung sounds on auscultation Abdomen: Soft, nontender, nondistended, normoactive bowel sounds, no rebound tenderness, no organomegaly, no masses Genitourinary: Deferred MSK/skin: Mobilizes 4 limbs. Skin is dry and warm Neurological: No motor, no sensitive deficits, normal speech. Pupils are isocoric and reactive. Psych/Mental Status: A/Ox3 Labs/Xrays Labs Test 02/23/25 14:20 02/23/25 13:57 Range/Units White Blood Count 10.8 4.4-10.8 10^3/uL Red Blood Count 4.70 4.0-5.20 10^6/uL Hemoglobin 13.1 12.2-16.2 g/dL Hematocrit 39.7 36.0-46.0 % Mean Corpuscular Volume 84.4 80.0-100.0 fL Mean Corpuscular Hemoglobin 27.8 L 28.0-32.0 pg Mean Corpuscular Hemoglobin Concent 32.9 32.0-36.0 g/dL Red Cell Distribution Width 15.8 H 11.8-14.3 % Platelet Count 265 140-450 10^3/uL Mean Platelet Volume 9.1 6.9-10.8 fL Neutrophils (%) (Auto) 91.8 H 37.0-80.0 % Lymphocytes (%) (Auto) 5.8 L 10.0-50.0 % Monocytes (%) (Auto) 2.1 0.0-12.0 % Eosinophils (%) (Auto) 0.0 0.0-7.0 % Basophils (%) (Auto) 0.3 0.0-2.0 % Neutrophils # (Auto) 9.9 H 1.6-8.6 10 ^3/uL Lymphocytes # (Auto) 0.6 0.4-5.4 10 ^3/uL Monocytes # (Auto) 0.2 0-1.3 10 ^3/uL Eosinophils # (Auto) 0 0-0.8 10 ^3/uL Basophils # (Auto) 0 0-0.2 10 ^3/uL Nucleated Red Blood Cells 0.0 % Sodium Level 140 136-145 mmol/L Potassium Level 3.4 L 3.5-5.1 mmol/L Chloride Level 107 98-107 mmol/L Carbon Dioxide Level 24 20-31 mmol/L Anion Gap 9 5-15 Blood Urea Nitrogen 13 9-23 mg/dL Creatinine 0.63 0.550-1.02 mg/dL Glomerular Filtration Rate Calc 120 >90 mL/min BUN/Creatinine Ratio 20.6 H 10.0-20.0 Serum Glucose 107 H 74-106 mg/dL Calcium Level 9.3 8.7-10.4 mg/dL Total Bilirubin 1.2 H 0.2-1.0 mg/dL Aspartate Amino Transferase (AST) 10 L 13-40 U/L Alanine Aminotransferase (ALT) 10 7-40 U/L Alkaline Phosphatase 59 46-116 U/L Total Protein 7.5 5.7-8.2 g/dL Albumin 4.8 3.2-4.8 g/dL Lipase 32 12-53 U/L Urine Color Yellow Yellow Urine Clarity Turbid H Clear Urine pH 7.5 5.0-9.0 Urine Specific [place] 1.029 1.001-1.035 Urine Protein 1+ H Negative Urine Ketones 3+ H Negative Urine Blood Negative Negative /uL Urine Nitrite Negative Negative Urine Bilirubin Negative Negative Urine Urobilinogen Normal Negative mg/dL Urine Leukocyte Esterase Negative Negative /uL Urine RBC 20 0 - 4 /hpf Urine Microscopic WBC 3 0-5 /HPF Urine Squamous Epithelial Cells Mod <5 /hpf Urine Bacteria None seen None Seen /hpf Urine Mucus Few None Seen Urine Glucose Normal Normal mg/dL Assessment/Plan Assessment/Plan Acute gastroenteritis, likely infectious etiology Intractable nausea and vomiting Right renal nonobstructing stone Diverticulosis Hypokalemia History of cholecystectomy sacroiliitis Vitamin-D deficiency CT abdomen showed Mild wall thickening of the stomach and proximal small bowel loops which may be due to inadequate distention/gastroenteritis.Punctate nonobstructing right renal calculus. Sigmoid diverticulosis without diverticulitis. Asymmetric right cieeh-cnufloo-glke-left sacroiliitis. Plan: Continue IV ceftriaxone and IV Flagyl starting 02/23 IV hydration with IV NS NPO for now, continue clear liquid diet tomorrow morning Follow up with the stool studies, C diff studies Plan discussed with patient in which all questions have been answered Goals of care discussed with patient for more than 28 minutes, full code status Case discussed with Dr. Peterson Plan discussed with: Patient My Orders Orders - BRENDEN TOMAS RESIDENT Procedure Category Date Status Time Admit ADMIT 02/23/25 Verified 22:43 NS PHA 02/23/25 Verified 22:45 Metronidazole Ivpb PHA 02/24/25 Verified Flagyl 06:00 Metronidazole Ivpb PHA 02/23/25 Verified Flagyl 22:45 Ceftriaxone Ivpb PHA 02/24/25 Verified Rocephin 09:00 Ceftriaxone Ivpb PHA 02/23/25 Verified Rocephin 22:45 Npo (Nothing By DIET 02/24/25 Verified Mouth) Diet Breakfast Npo After Midnight ORDERS 02/23/25 Verified Tylenol 500mg PHA 02/23/25 Verified 22:45 Date of Service: Feb 23, 2025 Billing Provider: DEWAYNE PETERSON MD Common Visit Codes: [id number] INP/OBS CARE (HIGH) BRENDEN TOMAS RESIDENT Feb 23, 2025 22:46 DEWAYNE PETERSON MD Feb 24, 2025 10:29
[2025-02-24 00:03] LABS: Amphetamine Screen, Urine Neg (NEGATIVE); Barbiturate Scree,Urine Neg (NEGATIVE); Benzodiazephine Screen, Urine Neg (NEGATIVE); Cannabinoid Screen, Urine Pos (NEGATIVE); Cocaine Screen, Urine Neg (NEGATIVE); Opiate Scree,Urine Neg (NEGATIVE)
[2025-02-24 00:04] LABS: Phencyclidine Screen, Urine Neg (NEGATIVE)
[2025-02-24] MEDS: SODIUM CHLORIDE 0.9% 1,000 ML IV ONE (00:15)
[2025-02-24] MEDS: metroNIDAZOLE 500MG/100ML 100 ML IV ONE (00:18)
[2025-02-24] MEDS: POTASSIUM EFFERVESENT TAB 25 MEQ PO ONE (00:19)
[2025-02-24] MEDS: cefTRIAXone 1GM/50ML D5W 50 ML IV ONE (00:19)
[2025-02-24 00:30] LABS: INR 1.06 (0.9-1.15); Partial Thromboplastin Time 27.3 SEC (24.5-34.5); Prothrombin Time 11.2 sec (9.3-11.8)
[2025-02-24] MEDS: ERGOCALCIFEROL 50,000 UNIT(1.25MG) CAP PO SCH (03:30)
[2025-02-24] MEDS: ONDANSETRON HCL 4 MG/2 ML VIAL IV PRN (04:22)
[2025-02-24] MEDS: CYANOCOBALAMIN (B-12) 1000 MCG/1 ML VIAL IM ONE (04:22)
[2025-02-24] MEDS: metroNIDAZOLE 500MG/100ML 100 ML IV SCH (05:37)
[2025-02-24 07:40] VITALS: PULSE 66; RESP 16; O2SAT 98
[2025-02-24 08:10] LABS: Basophils # (auto) 0 10 ^3/uL (0-0.2); Basophils % (auto) 0.4 % (0.0-2.0); Eosinophils # (auto) 0.1 10 ^3/uL (0-0.8); Eosinophils % (auto) 1.7 % (0.0-7.0); Hematocrit 38.1 % (36.0-46.0); Hemoglobin 12.5 g/dL (12.2-16.2); Lymphocytes # (auto) 1.5 10 ^3/uL (0.4-5.4); Lymphocytes % (auto) 26.1 % (10.0-50.0); Mean Corpuscular Hemoglobin 27.7 pg (28.0-32.0); Mean Corpuscular Hgb Conc. 32.6 g/dL (32.0-36.0); Mean Corpuscular Volume 84.8 fL (80.0-100.0); Monocytes # (auto) 0.6 10 ^3/uL (0-1.3); Monocytes % (auto) 10.7 % (0.0-12.0); Neutrophils # (auto) 3.4 10 ^3/uL (1.6-8.6); Neutrophils % (auto) 61.1 % (37.0-80.0); Nucleated Red Blood Cells % 0.1 %; Platelet Count (auto) 243 10^3/uL (140-450); Red Cell Distribution Width 16.3 % (11.8-14.3); White Blood Cell 5.6 10^3/uL (4.4-10.8)
[2025-02-24 08:23] LABS: Alanine Aminotransferase 16 U/L (7-40); Albumin 4.8 g/dL (3.2-4.8); Alkaline Phosphatase 59 U/L (46-116); Anion Gap 10 (5-15); Aspartate Aminotransferase 14 U/L (13-40); BUN/Creatinine Ratio 21.4 (10.0-20.0); Bilirubin, Total 0.8 mg/dL (0.2-1.0); Blood Urea Nitrogen 15 mg/dL (9-23); Calcium 9.4 mg/dL (8.7-10.4); Carbon Dioxide 25 mmol/L (20-31); Chloride 105 mmol/L (98-107); Glucose 102 mg/dL (74-106); Potassium 3.8 mmol/L (3.5-5.1); Sodium 140 mmol/L (136-145)
--- NOTE | 2025-02-24 11:35 | DVHPNRES ---
Progress Note Date Seen: Feb 24, 2025 Resident Creating Document: SHIRIN BUNCH RESIDENT Medical Necessity Reason Pt with a Central, PICC or Fol: No Subjective Review of Systems Boone Byrd is a 34-year-old with past medical history of 3 section and cholecystectomy 7 years ago who presented to the ER with a chief complaint of intractable nausea, vomiting and diarrhea for the past 2 days. Patient reports that she is unable to keep any solids or liquid food down, has been experiencing vomiting which is clear and diarrhea about 8-10 episodes for the past 2 days which is watery and yellowish, not bloody. Her symptoms did improve yesterday but then again flared up to the therefore she decided to come to the ER. She reports chills but no fever or shortness of breaths or rash. Patient reports dining out, but says that she has not tried any items. Denies any recent travel history. Says that her kids at house are fine. Patient also reports right-sided sharp flank pain occasionally. Patient was seen and examined on the bedside. she is alert oriented x3. mentioned 1 loose bowel movement since morning and no other active complaint. Advanced to clear liquid diet Constitutional: No: Fever, Chills, Sweats, Weakness, Malaise, Other Eyes: No: Pain, Vision change, Conjunctivae inflammation, Eyelid inflammation, Other, Redness ENT: No: Ear pain, Ear discharge, Nose pain, Nose discharge, Nose congestion, Mouth pain, Mouth swelling, Throat pain, Throat swelling, Other Respiratory: Shortness of breath, improving No: Cough, Dry,Wheezing, Hemoptysis, Pleuritic Pain, Sputum, Wheezing, Other Cardiovascular: No: Chest Pain, Palpitations, Orthopnea, Paroxysmal Noc. Dyspnea, Edema, Lt Headedness, Other Gastrointestinal : Nausea, Vomiting, Abdominal Pain, Diarrhea, No Constipation, Melena, Hematochezia, Other Musculoskeletal: No: other, neck pain, shoulder pain, arm pain, back pain, hand pain, leg pain, foot pain Neurological:; No: Weakness, Numbness, Incoordination, Change in speech, Confusion, Seizures Objective vital signs Vital Sign Date Time Temp Pulse Resp B/P (MAP) Pulse Ox O2 Delivery O2 Flow Rate FiO2 02/24/25 07:40 98.2 66 16 111/69 (83) 98 98.2 02/24/25 07:40 Room Air* 0 21 Total Intake and Output 02/23/25 02/23/25 02/24/25 15:00 23:00 07:00 Intake Total 250 ml Balance 250 ml medications Current Medications Medications Dose Ordered Sig/Jessica Route Start Time Stop Time Status Last Admin Dose Admin Metronidazole 100 ml @ 100 mls/hr Q8HR IV 02/24/25 06:00 02/24/25 05:37 100 MLS/HR Ceftriaxone Sodium 50 ml @ 100 mls/hr DAILY@2100 IV 02/24/25 21:00 Acetaminophen 500 mg Q4HPRN PRN PO 02/23/25 22:45 Ergocalciferol 50,000 unit Q7D PO 02/24/25 03:30 Ondansetron HCl 4 mg Q4HPRN PRN IV 02/24/25 03:30 02/24/25 04:22 4 MG Examination Physical examination: General Appearance: Alert, Oriented X3, Cooperative, No acute distress HEENT: Atraumatic, PERRLA, EOMI, Mucous membrane moist/pink Respiratory: Clear to auscultation, Normal air movement Cardiovascular: Regular rate, Normal S1, Normal S2, No murmurs, no chest wall tenderness Abdominal: Normal bowel sounds, Soft, No tenderness, No hepatospenomegaly, No masses Extremities: No clubbing, No cyanosis, No edema, Normal pulses, No tenderness/swelling Skin: No rashes, No breakdown, No significant lesion Neuro: Normal gait, Normal speech, Strength at 5/5 X4 ext, Normal tone, Sensation intact, Cranial nerves 3-12 NL, Reflexes 2+ Psych/Mental Status: Mental status NL, Mood NL laboratory and microbiology Laboratory Tests 02/24/25 07:50 Test 02/24/25 07:50 Range/Units Serum Glucose 102 74-106 mg/dL Labs and/or images reviewed: Labs reviewed by me, Image(s) reviewed by me Problem List/Assessment/Plan Problem List/Assessment/Plan Assessment and plan: # Intractable nausea and vomiting likely due to acute gastroenteritis, rule out infectious etiology # Diverticulosis # Intermittent rt flank pain likely due to nonobstructing right renal stone # Asymptomatic bilateral sacroiliitis - CT abdomen without contrast demonstrated Mild wall thickening of the stomach and proximal small bowel loops which may be due to inadequate distention/gastroenteritis.Punctate nonobstructing right renal calculus. Sigmoid diverticulosis without diverticulitis. Asymmetric [id number]-nvvi-left sacroiliitis. - Clear liquid diet - IV ondansetron 4 mg q.4 PRN - Acetaminophen 500 mg q.4 PRN - IV ceftriaxone 1 g daily and IV metronidazole 500 mg t.i.d. ( Started on 02/23/25) - Pending stool studies and C diff toxin. - Recommended outpatient EGD after discharge. # Vitamin D deficiency - Vitamin-D 78805 units Q 7D # Cannabinoids use disorder - UDS is positive for cannabinoids - Counseled patient regarding drug abuse and rehabilitation. # DVT prophylaxis - Not recommended as patient is mobile. Goal of care discussed with the patient for more than 20 minutes full code Plan discussed with Dr. Peterson Plan discussed with: Patient, Other My Orders My Orders Orders - SHIRIN BUNCH Procedure Category Date Status Time Stool Occult Blood LAB 02/24/25 Uncollected 08:36 Clear Liq Diet DIET 02/24/25 Transmitted Lunch Date of Service: Feb 24, 2025 Billing Provider: DEWAYNE PETERSON MD Common Visit Codes: [id number] INP/OBS CARE(HIGH) SHIRIN BUNCH RESIDENT Feb 24, 2025 11:35 DEWAYNE PETERSON MD Feb 24, 2025 15:31
[2025-02-24 17:15] VITALS: BP 104/60; PULSE 60; RESP 19; TEMP 98.5; O2SAT 93
[2025-02-24 17:22] VITALS: PULSE 62; RESP 18; O2SAT 98
[2025-02-24] MEDS: cefTRIAXone 1GM/50ML D5W 50 ML IV SCH (21:22)
[2025-02-25] MEDS ORDERED: CYANOCOBALAMIN 500 MCG TAB PO SCH (10:00)
--- NOTE | 2025-02-25 11:35 | DVHDSRES ---
Discharge Summary Date of Admission Resident Creating Document: SHIRIN BUNCH RESIDENT Feb 23, 2025 at 22:43 Date of Discharge: Feb 24, 2025 Admitting Diagnosis Intractable nausea, vomiting and diarrhea Wounds: No wound was present Labs/Diagnostic Data: Laboratory Results Test 02/24/25 07:50 02/23/25 23:58 02/23/25 14:20 02/23/25 13:57 White Blood Count 5.6 10^3/uL (4.4-10.8) Red Blood Count 4.50 10^6/uL (4.0-5.20) Hemoglobin 12.5 g/dL (12.2-16.2) Hematocrit 38.1 % (36.0-46.0) Mean Corpuscular Volume 84.8 fL (80.0-100.0) Mean Corpuscular Hemoglobin 27.7 pg (28.0-32.0) Mean Corpuscular Hemoglobin Concent 32.6 g/dL (32.0-36.0) Red Cell Distribution Width 16.3 % (11.8-14.3) Platelet Count 243 10^3/uL (140-450) Mean Platelet Volume 9.1 fL (6.9-10.8) Neutrophils (%) (Auto) 61.1 % (37.0-80.0) Lymphocytes (%) (Auto) 26.1 % (10.0-50.0) Monocytes (%) (Auto) 10.7 % (0.0-12.0) Eosinophils (%) (Auto) 1.7 % (0.0-7.0) Basophils (%) (Auto) 0.4 % (0.0-2.0) Neutrophils # (Auto) 3.4 10 ^3/uL (1.6-8.6) Lymphocytes # (Auto) 1.5 10 ^3/uL (0.4-5.4) Monocytes # (Auto) 0.6 10 ^3/uL (0-1.3) Eosinophils # (Auto) 0.1 10 ^3/uL (0-0.8) Basophils # (Auto) 0 10 ^3/uL (0-0.2) Nucleated Red Blood Cells 0.1 % Sodium Level 140 mmol/L (136-145) Potassium Level 3.8 mmol/L (3.5-5.1) Chloride Level 105 mmol/L (98-107) Carbon Dioxide Level 25 mmol/L (20-31) Anion Gap 10 (5-15) Blood Urea Nitrogen 15 mg/dL (9-23) Creatinine 0.70 mg/dL (0.550-1.02) Glomerular Filtration Rate Calc 117 mL/min (>90) BUN/Creatinine Ratio 21.4 (10.0-20.0) Serum Glucose 102 mg/dL (74-106) Calcium Level 9.4 mg/dL (8.7-10.4) Total Bilirubin 0.8 mg/dL (0.2-1.0) Aspartate Amino Transferase (AST) 14 U/L (13-40) Alanine Aminotransferase (ALT) 16 U/L (7-40) Alkaline Phosphatase 59 U/L (46-116) Total Protein 7.0 g/dL (5.7-8.2) Albumin 4.8 g/dL (3.2-4.8) Prothrombin Time 11.2 sec (9.3-11.8) Prothrombin Time INR 1.06 (0.9-1.15) Activated Partial Thromboplast Time 27.3 SEC (24.5-34.5) Vitamin B12 Level 281 pg/mL (211-911) Vitamin D 25-Hydroxy 18.3 ng/mL (30.0-100) Hemoglobin A1c 5.2 % A1C (<5.7) Magnesium Level 1.6 mg/dL (1.6-2.6) Lipase 32 U/L (12-53) Thyroid Stimulating Hormone (TSH) 0.80 uIU/mL (0.55-4.78) Urine Color Yellow (Yellow) Urine Clarity Turbid (Clear) Urine pH 7.5 (5.0-9.0) Urine Specific [place] 1.029 (1.001-1.035) Urine Protein 1+ (Negative) Urine Ketones 3+ (Negative) Urine Blood Negative /uL (Negative) Urine Nitrite Negative (Negative) Urine Bilirubin Negative (Negative) Urine Urobilinogen Normal mg/dL (Negative) Urine Leukocyte Esterase Negative /uL (Negative) Urine RBC 20 /hpf (0 - 4) Urine Microscopic WBC 3 /HPF (0-5) Urine Squamous Epithelial Cells Mod /hpf (<5) Urine Bacteria None seen /hpf (None Seen) Urine Mucus Few (None Seen) Urine Glucose Normal mg/dL (Normal) Urine Opiates Screen Neg (NEGATIVE) Urine Fentanyl Screen Neg (NEGATIVE) Urine Barbiturates Screen Neg (NEGATIVE) Urine Phencyclidine Screen Neg (NEGATIVE) Urine Amphetamines Screen Neg (NEGATIVE) Urine Benzodiazepines Screen Neg (NEGATIVE) Urine Cocaine Screen Neg (NEGATIVE) Urine Cannabinoids Screen Pos (NEGATIVE) Other Laboratory Tests 02/24/25 07:50 Brief Hx & Hospital Course: Boone Byrd is a 34-year-old with past medical history of 3 section and cholecystectomy 7 years ago who presented to the ER with a chief complaint of intractable nausea, vomiting and diarrhea for the past 2 days. Patient reports that she is unable to keep any solids or liquid food down, has been experiencing vomiting which is clear and diarrhea about 8-10 episodes for the past 2 days which is watery and yellowish, not bloody. Her symptoms did improve yesterday but then again flared up to the therefore she decided to come to the ER. She reports chills but no fever or shortness of breaths or rash. Patient reports dining out, but says that she has not tried any items. Denies any recent travel history. Says that her kids at house are fine. Patient also reports right-sided sharp flank pain occasionally. Hospital course: Patient was presented with intractable nausea, vomiting and diarrhea and the stool was sent for stool bacterial culture, C diff toxin study. CT abdomen without contrast demonstrated Mild wall thickening of the stomach and proximal small bowel loops which may be due to inadequate distention/gastroenteritis and Punctate nonobstructing right renal calculus, Sigmoid diverticulosis without diverticulitis, Asymmetric nroha-bijkoeo-xjjs-left sacroiliitis. Patient was treated with clear liquid diet, IV normal saline, IV ondansetron 4 mg q.4 PRN, IV ceftriaxone 1 g daily and IV metronidazole 500 mg t.i.d and was recommended outpatient EGD after discharge. UDS was positive for cannabinoids and counseled patient regarding cannabinoid abuse and rehabilitation. Patient left AMA Consults/Reason for consult No consultation was done Operations or Procedures Exam: CT CT AB PEL WO CON-NO ORAL OR IV History: pain FINDINGS: The lung bases are clear. Partially visualized heart is unremarkable. Status post cholecystectomy. Liver, spleen, pancreas and adrenal glands unremarkable. Punctate nonobstructing right renal calculus. Otherwise, kidneys, ureters and urinary bladder unremarkable. Uterus is unremarkable. Bilateral ovaries are visualized. Mild gastric wall thickening. Small bowel loops are fluid-filled and nondistended. Mild wall thickening of small bowel segment within the left hemiabdomen. Appendix is unremarkable. Sigmoid diverticulosis without diverticulitis. The large bowel is otherwise unremarkable. No evidence of intraperitoneal free air or free fluid. No evidence of aortic aneurysm. No significant lymphadenopathy. Tiny fat containing umbilical hernia. No destructive osseous lesions noted. Asymmetric sclerosis of the sxepv-tgncoii-wful-left SI joints. IMPRESSION: Mild wall thickening of the stomach and proximal small bowel loops which may be due to inadequate distention/gastroenteritis. Punctate nonobstructing right renal calculus. Sigmoid diverticulosis without diverticulitis. Asymmetric right gozlj-thteeka-yjie-left sacroiliitis. Condition at Discharge: Undetermined Final Diagnosis/Problems List # Intractable nausea and vomiting likely due to acute gastroenteritis, rule out infectious etiology # Diverticulosis # Intermittent rt flank pain likely due to nonobstructing right renal stone # Asymptomatic bilateral sacroiliitis # Vitamin D deficiency # Cannabinoids use disorder Discharge Disposition: AMA Discharge Statement: "Patient was advised to return to the ER or call 911 if any headaches, dizziness, shortness of breath, chest pain, abdominal pain, bleeding, fevers, or worsening of medical condition. Patient was counseled about treatment plan, medications, possible side effects, patientverbalized understanding. All questions were answered to the best of my ability. This discharge took greater then 30 minutes in planning, reviewing documentation, counseling the patient, and discussing with other team members." ASSESSMENT ASSESSMENT Assessment Date of Service: Feb 24, 2025 Billing Provider: DEWAYNE PETERSON MD Common Visit Codes: [id number] DISCH DAY >30min SHIRIN BUNCH RESIDENT Feb 25, 2025 11:35 DEWAYNE PETERSON MD Feb 25, 2025 13:45
== END 2025-02-26 10:35 | disposition left against medical advice (07) | DRG 465 ==
LOC: ER 13:51 → OVERFLOW 22:43 → EAST 23:46 → OVERFLOW 02-24 23:46 → EAST 02-24 23:50 → OVERFLOW 02-25 01:44
PROVIDERS: ADMIT Internal Medicine; ATTEND Internal Medicine
DX: N20.0 Calculus of kidney (principal); A08.4 Viral intestinal infection, unspecified; E55.9 Vitamin D deficiency, unspecified; E66.3 Overweight; K57.90 Diverticulosis of intestine, part unspecified, without perforation or abscess without bleeding; Z68.28 Body mass index [BMI] 28.0-28.9, adult; E87.6 Hypokalemia; M46.1 Sacroiliitis, not elsewhere classified; F12.929 Cannabis use, unspecified with intoxication, unspecified; K57.30 Diverticulosis of large intestine without perforation or abscess without bleeding; Z98.51 Tubal ligation status; Z79.899 Other long term (current) drug therapy; Z90.49 Acquired absence of other specified parts of digestive tract; Z98.891 History of uterine scar from previous surgery; Z53.29 Procedure and treatment not carried out because of patient's decision for other reasons
CPT/HCPCS: 36415; 74176; 80053; 80307; 81001; 82306; 82607; 83036; 83690; 83735; 84443; 85025; 85610; 85730; 96374; G0378; J2405; J3490